=== PATIENT | female | born 1955 | race Caucasian/White ===

== ENCOUNTER 2021-07-26 14:30 | Outpatient (RCR) | payer SELFPAY | END 2021-07-29 23:59 | LOC: NS 14:30 | PROVIDERS: PCP Family Medicine | DX: Z00.00 Encounter for general adult medical examination without abnormal findings (principal) | CPT/HCPCS: 97802; 97803 ==

== ENCOUNTER 2021-08-16 14:04 | Outpatient (RCR) | payer SELFPAY | END 2021-08-28 23:59 | LOC: NS 14:04 | PROVIDERS: PCP Family Medicine | DX: Z00.00 Encounter for general adult medical examination without abnormal findings (principal) | CPT/HCPCS: 97803 ==